=== PATIENT | female | born 1985 | race Caucasian/White ===

== ENCOUNTER 2023-09-16 12:54 | Inpatient (IN) ==
--- NOTE | 2023-09-16 13:16 | ED Triage Note ---
Date of Service September 16, 2023 Provider in Triage Author: Ej Thomas. History of Present Illness This patient was briefly evaluated while in triage. An abbreviated physical exam was performed. This patient is a 38-year-old Female who presents to the ED for evaluation of nausea vomiting diarrhea. nonbloody. intermittent cramping abd pain with ingestion. concerned she is dehydrated. No upper respiratory symptoms. Daughter also sick with similar symptoms. Patient has been sick for 1 week with the same symptoms. Physical Exam CONSTITUTIONAL: uncomfortable appearing, mildly ill, nontoxic SKIN: pink, warm, dry CARDIAC: tachycardic rate and regular rhythm RESPIRATORY: in no respiratory distress, lungs clear to auscultation ABDOMEN: soft, no focal tenderness Initial orders for labs and / or imaging were placed and patient was placed in the waiting area until a bed is available. Please see further documentation for the full ED course.
[2023-09-16] MEDS: ONDANSETRON INJ 2 MG/ML 2 ML VIAL IV STA (13:54)
[2023-09-16] MEDS: SODIUM CHLORIDE 0.9% 1,000 ML IV SCH (13:56)
[2023-09-16 13:57] LABS: Basophils # (auto) 0.02 K/uL (0.00-0.20); Basophils % (auto) 0.1 %; Eosinophils # (auto) 0.59 K/uL (0.00-0.50); Eosinophils % (auto) 4.1 %; Hematocrit (blood only) 42.9 % (37.0-47.0); Hemoglobin 16.1 g/dl (12.0-16.0); Immature Granulocytes # (auto) 0.07 K/uL (0.01-0.20); Immature Granulocytes % (auto) 0.5 %; Lymphocytes # (auto) 2.45 K/uL (1.20-3.40); Lymphocytes % (auto) 16.9 %; Mean Corpuscular Hemoglobin 30.8 pg (25.0-34.0); Mean Corpuscular Hgb Conc 37.5 g/dL (32.0-36.0); Mean Platelet Volume 11.2 fL (9.4-12.4); Monocytes # (auto) 0.88 K/uL (0.11-0.59); Monocytes % (auto) 6.1 %; Neutrophils # (auto) 10.48 K/uL (1.40-6.50); Neutrophils % (auto) 72.3 %; Platelet Count 395 K/uL (130-400); RDW Coefficient of Variation 13.1 % (11.5-14.5); RDW Standard Deviation 39.1 fL (36.4-46.3); Red Blood Count 5.23 M/uL (4.20-5.40); White Blood Count 14.49 K/ul (4.8-10.8)
--- NOTE | 2023-09-16 14:10 | Emergency Department Note ---
Impression & Plan Nausea, vomiting, and diarrhea, Hypokalemia due to excessive gastrointestinal loss of potassium ED Provider Note CHIEF COMPLAINT: Nausea, vomiting and diarrhea x 1 week HISTORY OF PRESENT ILLNESS: Patient is a 38-year-old female with past medical history significant for ADHD, anxiety and depression who presents to the emergency department for evaluation of nausea, vomiting and diarrhea. Symptoms started last Friday, 8 days ago.. She reports numerous episodes of both over the last week. She was feeling a little bit better on Friday, 2 days ago, had no vomiting and less diarrhea, but symptoms rebounded again yesterday. Last episode of vomiting was while she was in the waiting room, diarrhea was prior to leaving her home. She is tried Zofran and Imodium without relief. She has not documented a fever but had sweats and chills. She denies melena, hematemesis or hematochezia. Her school-aged daughter is sick with similar symptoms, and there have been multiple sick contacts at work. 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 No urinary symptoms. Last menstrual period was 3 weeks ago. She denies any foreign travel, unusual food or water concerns or recent antibiotic use. REVIEW OF SYSTEMS: Review of systems as per HPI. All other systems reviewed were negative. 10 systems reviewed. PMH: External medical records are reviewed and summarized as above/below. See Problem List. SOCIAL HISTORY: Patient lives at home with her family. Employed. PHYSICAL EXAM: Vital Signs: Reviewed Nurse's notes. Tachycardic in triage, mildly hypotensive in the exam room. CONSTITUTIONAL: Patient is an ill appearing but otherwise nontoxic 38-year-old female laying on the gurney in no acute distress. EYES: Pupils equal, round, reactive to light and accommodation. EOMs intact without nystagmus. Sclera are anicteric. ENT: Tympanic membranes intact, with normal landmarks. External canals are clear. Oral and nasopharynx are clear. Mucous membranes are moist, no lesions, tongue and gums appear normal. CARDIOVASCULAR: Regular rate and rhythm. Peripheral pulses easily palpable. RESPIRATORY: Breath sounds equal and clear to auscultation. ABDOMEN: Bowel sounds are present, hyperactive throughout. The abdomen is soft, mildly distended, tympanic to percussion throughout. Diffusely tender to percussion and palpation, without focal guarding or rebound. INTEGUMENTARY: No lesions or rash, normal skin turgor. LYMPH: No lymphadenopathy. EMERGENCY DEPARTMENT COURSE: The patient was seen and assessed as above. External medical records were reviewed. Patient was assessed by provider in triage and orders initiated including CBC with differential, CMP, serum hCG, lipase, magnesium, urinalysis and stool studies. She was observed on the quality assurance monitor final. She was given a total of 2 L of normal saline solution and Zofran 4 mg IV. Patient was reassessed. Laboratory studies were reviewed with her. The first liter of IV fluid was complete and second liter was hung. She was ordered 10 mEq of KCl repletion, this went up as well. She is still having diarrhea and was given 2 tablets of Lomotil orally. Discussed possible oral repletion of the potassium if vomiting is managed. Given persistent diarrhea, did recommend CT scan of the abdomen and pelvis with IV contrast. CT scan as noted below. Patient was reassessed and CT scan findings were discussed with her. Second liter of fluid is finishing. She reports feeling mildly improved with the oral Lomotil. Still hypotensive and mildly tachycardic, recommended additional liter of LR and additional 10 mEq of KCl IV. She was in agreement. At this point, goal is to discharge patient to home. Discussed medication regimen with her, including Phenergan, Lomotil and Bentyl. Would also like her to get a dose of oral potassium chloride powder in the ED prior to discharge, if she is tolerating p.o. This was ordered with PO fluid trial. At change of shift (1740), care was signed out to colleague, Nafisa Tariq PA-C, pending additional IVF, PO fluid trial and reassessment. Please refer to her dictation for completion of ED course and ultimate disposition. Case was reviewed with Dr. Burrell. Diagnostics, as interpreted by me: Laboratory studies: Moderate leukocytosis 14,500 with left shift. No anemia. No thrombocytopenia. Hypokalemia noted with a potassium of 2.8, no other significant electrolyte imbalance requiring correction noted. No MAURISIO. No worrisome transaminitis. Lipase is not indicative of acute pancreatitis. test negative. Stool PCR negative. Cardiac Monitoring: Cardiac monitoring: An order was placed for continuous cardiac monitoring. The monitor shows a NSR at a rate of 82 per my interpretation. Imaging studies: CT scan of the abdomen and pelvis with IV contrast notes fluid- filled nondilated large and small bowel as well as stomach, consistent with diarrheal illness/gastroenteritis. Mesenteric nodes also noted. No bowel wall thickening or obstruction. Differential diagnosis: infectious versus inflammatory colitis/enteritis, foodborne illness, electrolyte or metabolic abnormality, dehydration, bowel obstruction, diverticulitis, among others. Past Med/Surg History Medical History (Updated 09/16/23 @ 17:33 by Mouna Morrissey) Obesity ADHD Anxiety and depression Surgical History (Updated 09/16/23 @ 14:10 by Mouna Morrissey) H/O section History of appendectomy Social History Smoking Status: Never smoker Feels Safe at Home: Yes Allergies Allergies Allergy/AdvReac Type Severity Reaction Status Date / Time cefadroxil [From Duricef] Allergy Severe THROAT Verified 09/16/23 14:29 CLOSES cefaclor [From Ceclor] Allergy Intermediate ITCHY Verified 09/16/23 14:29 HIVES/RASH Cephalosporins Allergy Intermediate Hives, Verified 09/16/23 14:29 Rash-->as a child Penicillins Allergy Intermediate ITCHY Verified 09/16/23 14:29 HIVES/RASH A CHILD Home Meds Home Medications Medication Instructions Recorded Confirmed Control Pill 1 tab PO HS 09/16/23 09/16/23 bupropion HCl 150 mg 24 hr tablet, 150 mg PO QAM 09/16/23 09/16/23 extended release (Wellbutrin XL) dextroamphetamine-amphetamine ER 15 mg PO DAILY 09/16/23 09/16/23 15 mg 24hr capsule,extend release (Adderall XR) escitalopram oxalate 10 mg tablet 15 mg PO HS 09/16/23 09/16/23 (Lexapro) semaglutide 1 mg/dose (4 mg/3 mL) 10 mg subcut WK 09/16/23 09/16/23 subcutaneous pen injector (Ozempic) Previous Rx's Medication Instructions Recorded dicyclomine 20 mg tablet 20 mg PO QID PRN abdominal pain 09/16/23 #20 tabs diphenoxylate-atropine 2.5 2 tab PO QID PRN diarrhea #20 tabs 09/16/23 mg-0.025 mg tablet (Lomotil) promethazine 25 mg tablet 25 mg PO Q6H PRN nausea and 09/16/23 vomiting #20 tabs Results & Data (ED) Vital Signs Vital Signs - 24 hr 09/16/23 13:11 09/16/23 14:54 09/16/23 14:54 Temperature 36.9 C Temperature Source Temporal Artery Scan Pulse Rate 126 H Pulse Rate [Apical] 92 H Respiratory Rate 18 14 Respiratory Effort / Characteristics Non-Labored Spontaneous Respiratory Depth Normal Normal Blood Pressure 123/94 Blood Pressure [Left Arm] 98/77 L Blood Pressure Mean 103 Blood Pressure Mean [Left Arm] 84 Pulse Oximetry 99 98 98 Oxygen Delivery Method Room Air Room Air Room Air Sepsis Recent Fever Within 48 Hours No Sepsis New/Unexplained Change in Mental Status No Sepsis Action Taken by Nursing No Action Required 09/16/23 16:48 Temperature Temperature Source Pulse Rate Pulse Rate [Apical] 93 H Respiratory Rate 16 Respiratory Effort / Characteristics Respiratory Depth Normal Blood Pressure Blood Pressure [Left Arm] 104/71 Blood Pressure Mean Blood Pressure Mean [Left Arm] 82 Pulse Oximetry 98 Oxygen Delivery Method Room Air Sepsis Recent Fever Within 48 Hours Sepsis New/Unexplained Change in Mental Status Sepsis Action Taken by Prison Medications Current Medication List: was personally reviewed by me Laboratory Data Attestation: I reviewed the patient's lab results. 09/16/23 13:24 09/16/23 13:24 Lab Results 09/16/23 09/16/23 Range/Units 13:24 14:30 WBC 14.49 H (4.8-10.8) K/ul RBC 5.23 (4.20-5.40) M/uL Hgb 16.1 H (12.0-16.0) g/dl Hct 42.9 (37.0-47.0) % MCV 82.0 (80.0-100.0) fL MCH 30.8 (25.0-34.0) pg MCHC 37.5 H (32.0-36.0) g/dL RDW Std Deviation 39.1 (36.4-46.3) fL RDW Coeff of Mariely 13.1 (11.5-14.5) % Plt Count 395 (130-400) K/uL MPV 11.2 (9.4-12.4) fL Immature Gran % (Auto) 0.5 % Neut % (Auto) 72.3 % Lymph % (Auto) 16.9 % [place] % (Auto) 6.1 % Eos % (Auto) 4.1 % Baso % (Auto) 0.1 % Neut # (Auto) 10.48 H (1.40-6.50) K/uL Lymph # (Auto) 2.45 (1.20-3.40) K/uL [place] # (Auto) 0.88 H (0.11-0.59) K/uL Eos # (Auto) 0.59 H (0.00-0.50) K/uL Baso # (Auto) 0.02 (0.00-0.20) K/uL Immature Gran # (Auto) 0.07 (0.01-0.20) K/uL Sodium 140 (136-145) mmol/L Potassium 2.8 L (3.5-5.1) mmol/L Chloride 102 (98-107) mmol/L Carbon Dioxide 23 (21-32) mmol/L Anion Gap 15 H (3-11) BUN 11 (6-23) mg/dl Creatinine 1.00 (0.6-1.2) mg/dl Est Cr Clr Drug Dosing Not Reportable Est GFR ( Amer) 83.4 ml/min Est GFR (Non-Af Amer) 71.9 ml/min BUN/Creatinine Ratio 11.0 (10-20) Glucose 107 H (70-99(Fasting)) mg/dl Calcium 9.5 (8.6-10.3) mg/dl Magnesium 1.7 (1.7-2.4) mg/dl Total Bilirubin 0.4 (0.2-1.0) mg/dl AST 44 H (13-39) U/L ALT 24 (7-52) U/L Alkaline Phosphatase 95 (34-104) U/L Total Protein 8.1 (6.0-8.3) gm/dl Albumin 4.6 (3.4-5.0) gm/dl Globulin 3.5 (2.5-4.0) gm/dl Albumin/Globulin Ratio 1.3 (0.9-2) Lipase 29 (11-82) U/L HCG, Qual Negative (Negative) Stl C. cayetanensis PCR Not Detected (NotDetected) Stool Rotavirus A PCR Not Detected (NotDetected) Stl Adenov F 40/41 PCR Not Detected (NotDetected) Stool Astrovirus (PCR) Not Detected (NotDetected) Stool Campylobacter PCR Not Detected (NotDetected) Stool Cryptosporidium PCR Not Detected (NotDetected) Stl E.coli Shiga Tox PCR Not Detected (NotDetected) Stl Enterotoxigenic E PCR Not Detected (NotDetected) Stool EPEC (PCR) Not Detected (NotDetected) Stool EAEC (PCR) Not Detected (NotDetected) Stl E. histolytica PCR Not Detected (NotDetected) Stool Giardia Lamblia PCR Not Detected (NotDetected) Stool Salmonella PCR Not Detected (NotDetected) Stool Sapovirus (PCR) Not Detected (NotDetected) Stl P. shigelloides PCR Not Detected (NotDetected) Stl Shigella/EIEC PCR Not Detected (NotDetected) St Y.enterocolitica PCR Not Detected (NotDetected) Stool Vibrio (PCR) Not Detected (NotDetected) Stl Vibrio cholerae PCR Not Detected (NotDetected) Stl Norovirus GI/GII PCR Not Detected (NotDetected) Administered Medications Discontinued Medications Diphenoxylate HCl/Atropine (Diphenoxylate/Atropine 2.5/0.025mg Tab) 2 tab PO NOW ONE Stop: 09/16/23 15:40 Last Admin: 09/16/23 15:48 Dose: 2 tab Documented By: SIERRA Sodium Chloride (Nss) 1,000 mls @ 999 mls/hr IV .Q1H1M PEBBLES Stop: 09/16/23 15:15 Last Infusion: 09/16/23 16:50 Dose: Infused Documented By: Admin: 09/16/23 15:41 Dose: 999 mls/hr Documented By: Infusion: 09/16/23 15:41 Dose: Infused Documented By: Admin: 09/16/23 13:56 Dose: 999 mls/hr Documented By: SIERRA Potassium Chloride (K Jim / Wtr) 10 meq in 100 mls @ 100 mls/hr IV ONE ONE Stop: 09/16/23 16:15 Last Infusion: 09/16/23 16:50 Dose: Infused Documented By: Admin: 09/16/23 15:42 Dose: 100 mls/hr Documented By: SIERRA Ioversol (Optiray 320 100ml) 90 ml IV ONCE ONE Stop: 09/16/23 16:40 Last Admin: 09/16/23 16:40 Dose: 90 ml Documented By: SB Ondansetron HCl (Ondansetron Inj 2 Mg/Ml 2 Ml Vial) 4 mg IV NOW STA Stop: 09/16/23 13:16 Last Admin: 09/16/23 13:54 Dose: 4 mg Documented By: SIERRA Imaging Data Attestation: I personally reviewed and interpreted this imaging study as follows: Radiologist's Impression: Abdomen/Pelvis CT 09/16/23 16:[address] WITH IV CONTRAST CT DOSE: 1026.5 mGy.cm HISTORY: DIARRHEA, VOMITING X 1 WEEK TECHNIQUE: Multiaxial CT images of the abdomen and pelvis were performed following the use of intravenous contrast. A dose lowering technique was utilized adhering to the principles of ALARA. COMPARISON STUDY: None. FINDINGS: The lung bases are clear. No pneumoperitoneum. No pneumatosis. No acute fractures. Fluid-filled nondistended stomach. The liver, gallbladder, pancreas, spleen, adrenal glands, and kidneys are unremarkable. No hydronephrosis. No retroperitoneal lymphadenopathy. Normal caliber abdominal aorta. The main portal vein is patent. Multiple prominent mesenteric lymph nodes measuring up to 7 mm in short axis diameter. No pelvic lymphadenopathy or pelvic free fluid. The bladder is underdistended but appears unremarkable. The uterus and ovaries are within normal limits. No bowel wall thickening or obstruction. Prior appendectomy. Fluid-filled nondilated loops of large and small bowel. IMPRESSION: 1. No bowel wall thickening or obstruction. 2. Prior appendectomy. 3. Fluid-filled nondilated loops of large and small bowel as well as a fluid- filled stomach. Findings suggest a diarrheal illness/gastroenteritis. 4. Multiple prominent mesenteric lymph nodes. These are nonspecific but could be reactive to the suspected gastroenteritis. A mild mesenteric adenitis is also considered in the differential diagnosis. ACT 112: Negative or not required by law. Electronically signed by: Jerad Shipman M.D. 09/16/2023 5:03 PM Discharge Plan Visit Data Chief Complaint: Dehydration Stated Complaint: DIARRHEA, DEHYDRATED ED Provider: Camilo Burrell ED Midlevel Provider: Nafisa Tariq Discharge Problem: Nausea, vomiting, and diarrhea, Hypokalemia due to excessive gastrointestinal loss of potassium Patient Disposition: Still a Patient Discharge Instructions Griselda/Other Patient Handouts: ED Potassium-Rich Foods Activity Restrictions/Additional Instructions: DO NOT drive, drink alcohol, operate machinery, or perform dangerous activities today. You were given medications in the ER that can affect your ability to safely function or operate a vehicle. Phenergan(promethazine) tablets 25mg: Take one every six hours as needed for nausea. Avoid alcohol, operating machinery or dangerous equipment, working on ladders or roofs, DRIVING, or situations where being under the influence may be dangerous. Zofran(odansetron) tablets 4mg: Take one and allow it to dissolve in your mouth every four to six hours as needed for nausea or vomiting. Bentyl (dicyclomine) 20mg : Take 1 tablet up to 4 times daily as needed for abdominal pain and cramping. This medication may cause sedation and should avoid alcohol, operating machinery or dangerous equipment, working on ladders or roofs, DRIVING, or situations where being under the influence may be dangerous. Lomotil 2.5mg : Take 2 tablets every 6 hours as needed for diarrhea, can decrease to 1 tablet every 6 hours as symptoms improve. This medication may cause sedation and should avoid alcohol, operating machinery or dangerous equipment, working on ladders or roofs, DRIVING, or situations where being under the influence may be dangerous. Acetaminophen(Tylenol) may be used for fever or pain. Use 1000mg every six hours as needed. Avoid using more than 4000mg in a 24 hour period. Rest and drink plenty of fluids as tolerated. Slow sips of water or sports drinks are recommended instead of large amounts all at once. Continue current medications. Once your stomach is settled start with a clear liquid diet (jello, soup broth, etc.) and then advance as tolerated. You should avoid full, heavy meals for about 24 hrs from the time your symptoms resolved. Try to incorporate potassium-rich foods in your diet once you are feeling better. Can consider having potassium level rechecked in a few days to ensure levels have returned to normal. NO DAIRY PRODUCTS-this can cause rebound diarrhea. Hold any dairy until you have been fever free x 48 hours. Return to the ER for persistent vomiting, fevers, abdominal pain, chest pains, difficulty breathing, black or bloody stools, worsening of your condition, or as needed. Follow up with your primary physician in 2-3 days for a recheck of your current condition. Forms Stand Alone Forms: My [facility] Prescriptions Prescriptions: New dicyclomine 20 mg tablet 20 mg PO QID PRN (Reason: abdominal pain) Qty: 20 0RF promethazine 25 mg tablet 25 mg PO Q6H PRN (Reason: nausea and vomiting) Qty: 20 0RF diphenoxylate-atropine [Lomotil] 2.5-0.025 mg tablet 2 tab PO QID PRN (Reason: diarrhea) Qty: 20 0RF Rx Instructions: INITIAL THERAPY No Action dextroamphetamine-amphetamine [Adderall XR] 15 mg Capsule,Extended Release 24hr 15 mg PO DAILY escitalopram oxalate [Lexapro] 10 mg Tablet 15 mg PO HS bupropion HCl [Wellbutrin XL] 150 mg Tablet Extended Release 24 Hr 150 mg PO QAM Ozempic 1 mg/dose (4 mg/3 mL) Pen Injector 10 mg SUBCUT WK Rx Instructions: SUNDAYS Control Pill 1 tab PO HS Referrals Referrals: PCP,NO [Primary Care Provider] -
[2023-09-16 14:12] LABS: Pregnancy Test, Serum Negative (Negative)
[2023-09-16 14:17] LABS: Alanine Aminotransferase 24 U/L (7-52); Albumin Globulin Ratio 1.3 (0.9-2); Albumin Level 4.6 gm/dl (3.4-5.0); Alkaline Phosphatase 95 U/L (34-104); Anion Gap 15 (3-11); Aspartate Aminotransferase 44 U/L (13-39); Bilirubin,Total 0.4 mg/dl (0.2-1.0); Blood Urea Nitrogen 11 mg/dl (6-23); Calcium 9.5 mg/dl (8.6-10.3); Carbon Dioxide 23 mmol/L (21-32); Chloride 102 mmol/L (98-107); Est GFR (African American) 83.4 ml/min; Est GFR (Non-African American) 71.9 ml/min; Globulin 3.5 gm/dl (2.5-4.0); Glucose 107 mg/dl (70-99(Fasting)); Lipase 29 U/L (11-82); Magnesium 1.7 mg/dl (1.7-2.4); Potassium 2.8 mmol/L (3.5-5.1); Sodium 140 mmol/L (136-145); Total Protein 8.1 gm/dl (6.0-8.3)
[2023-09-16] MEDS: POTASSIUM CHLORIDE / WTR 10 MEQ/100 ML PLCT IV ONE ×2 (15:42→17:49)
[2023-09-16] MEDS: DIPHENOXYLATE/ATROPINE 2.5/0.025MG TAB PO ONE (15:48)
[2023-09-16 16:16] LABS: Adenovirus F 40/41 PCR Not Detected (NotDetected); Astrovirus PCR Not Detected (NotDetected); Campylobacter PCR Not Detected (NotDetected); Cryptosporidium PCR Not Detected (NotDetected); Cyclospora cayetanensis PCR Not Detected (NotDetected); Entamoeba histolytica PCR Not Detected (NotDetected); Enteroaggregative E.coli(EAEC) Not Detected (NotDetected); Enteropathogenic E.coli (EPEC) Not Detected (NotDetected); Enterotoxigenic E.coli (ETEC) Not Detected (NotDetected); Giardia lamblia PCR Not Detected (NotDetected); Norovirus GI/GII PCR Not Detected (NotDetected); Plesiomonas shigelloides PCR Not Detected (NotDetected); Rotavirus A PCR Not Detected (NotDetected); Salmonella PCR Not Detected (NotDetected); Sapovirus PCR Not Detected (NotDetected); Shiga-like Toxin E.coli (STEC) Not Detected (NotDetected); Shigella/Enteroinvasive E.coli Not Detected (NotDetected); Vibrio cholerae PCR Not Detected (NotDetected); Vibrio species PCR Not Detected (NotDetected); Yersinia enterocolitica PCR Not Detected (NotDetected)
[2023-09-16] MEDS: OPTIRAY 320 100ml IV ONE (16:40)
--- NOTE | 2023-09-16 17:05 | CT Scan Report ---
ABDOMEN AND PELVIS CT WITH IV CONTRAST CT DOSE: 1026.5 mGy.cm HISTORY: DIARRHEA, VOMITING X 1 WEEK TECHNIQUE: Multiaxial CT images of the abdomen and pelvis were performed following the use of intrave nous contrast. A dose lowering technique was utilized adhering to the principles of ALARA. COMPARISON STUDY: None. FINDINGS: The lung bases are clear. No pneumoperitoneum. No pneumatosis. No acute fractures. Fluid-fi lled nondistended stomach. The liver, gallbladder, pancreas, spleen, adrenal glands, and kidneys are unremarkable. No hydronephrosis. No retroperitoneal lymphadenopathy. Normal caliber abdominal aorta. The main portal vein is patent. Multiple prominent mesenteric lymph nodes measuring up to 7 mm in arnie rt axis diameter. No pelvic lymphadenopathy or pelvic free fluid. The bladder is underdistended but a ppears unremarkable. The uterus and ovaries are within normal limits. No bowel wall thickening or obs truction. Prior appendectomy. Fluid-filled nondilated loops of large and small bowel. IMPRESSION: 1. No bowel wall thickening or obstruction. 2. Prior appendectomy. 3. Fluid-filled nondilated loops of large and small bowel as well as a fluid-filled stomach. Findings suggest a diarrheal illness/gastroenteritis. 4. Multiple prominent mesenteric lymph nodes. These are nonspecific but could be reactive to the susp ected gastroenteritis. A mild mesenteric adenitis is also considered in the differential diagnosis. ACT 112: Negative or not required by law. Electronically signed by: Jerad Shipman M.D. 09/16/2023 5:03 PM
--- NOTE | 2023-09-16 17:41 | Emergency Department Note ---
ED Visit Note This patient was signed out to me by Alize Morrissey PA-C at change of shift. Please refer to her dictation for full details. In short, the patient presented to the emergency department for evaluation of nausea, vomiting, diarrhea, and abdominal pain that started 8 days ago. The patient's stool bio fire was negative. CT scan of the abdomen and pelvis with IV contrast showed fluid- filled nondilated large and small bowel as well as stomach consistent with diarrheal illness/gastroenteritis as well as possible mesenteric adenitis. The patient's white blood cell count was elevated at 14.5. Potassium was low at 2.8 with a normal magnesium. Remainder the laboratory studies without significant abnormalities. The patient was given a total of 2 L of normal saline solution, Zofran 4 mg IV, Lomotil 2 tablets orally, and one K rider. At the time of signout, a second K rider as well as 1 L of LR was being administered. The patient was to have a p.o. trial following this to see if she could be discharged home or whether she would require admission. Before I was able to reevaluate the patient, nursing staff notified me that after half of the second K rider had been given, the patient developed pain in the right arm as well as a tightness in her R>L legs that she felt was secondary to the potassium. The K rider was stopped, but the LR was continued. The arm pain resolved after the K rider was stopped. The pain in the legs improved, but did not fully resolve initially after stopping the K rider. I reexamined the patient at this time and she had no tenderness to palpation of the right arm or the bilateral lower legs. Normal sensation of the bilateral upper extremities and lower extremities. She denies any chest pain or shortness of breath. She had the continued abdominal pain, but no change in her abdominal pain from previous. She was still feeling queasy as well and was having trouble with a p.o. trial. EKG was obtained and interpreted by myself and showed normal sinus rhythm at 77 bpm with prolonged QT, but no acute ST or T wave changes. Due to the patient's continued symptoms, it was felt the patient would benefit from admission for further management of her symptoms. I spoke with the on-call hospitalist who agreed to admit the patient for further evaluation and treatment. Please refer to their dictation for further details. The patient's care was transferred in stable condition. DIAGNOSIS: Nausea, vomiting, and diarrhea that appear secondary to gastroenteritis Hypokalemia .
[2023-09-16] MEDS: POTASSIUM CHLORIDE PWD 20 MEQ PACK PO STA ×2 (17:48→21:54)
[2023-09-16] MEDS: LACTATED RINGER'S 1,000 ML IV ONE ×2 (17:49→22:15)
[2023-09-16 20:00] LABS: Appearance Urine Clear (Clear); Bacteria Urine Automated Negative (Negative); Bilirubin Urine Negative (Negative); Blood Urine Negative (Negative); Cast Urine Automated 0 /lpf (0-5); Color Urine Yellow; Glucose Urine UA Negative (Negative); Ketones Urine 4+ (Negative); Leukocyte Esterase Urine Negative (Negative); Nitrite Urine Negative (Negative); Protein Urine Trace (Negative); RBC Urine Automated 0-4 /hpf (0-4); Specific Gravity Urine > 1.045 (1.000-1.030); Urobilinogen Urine Negative (Negative); pH Urine 5.5 (4.5-7.5)
--- NOTE | 2023-09-16 21:43 | History & Physical Report ---
Date of Service September 16, 2023 Assessment & Plan (1) Hypokalemia due to excessive gastrointestinal loss of potassium: Plan: Secondary to likely viral diarrheal illness bronchial asthma, stable GIL on CPAP ADD, anxiety/mood disorder, stable on regimen OBS Medical telemetry given hypokalemia replace potassium, will use oral agents for now given patient's uncomfortable reaction to parenteral replacement Supportive management for viral diarrheal illness DVT prophylaxis. Lovenox subcu Full code Text document was generated using [employer] voice recognition software. It may contain grammatical or spelling errors. Kindly contact undersigned for clarification of any documentation item in question. History of Present Illness Chief Complaint: Abdominal pain Primary Care Provider: Dr. Ferrera of [place], [place] Patient partner requesting for patient to be set up with local PCP from [facility] on discharge. History obtained from patient, family, and records. Medical history significant for bronchial asthma, GIL on CPAP, ADD, anxiety/mood disorder Patient relocated to town 6 months ago to live with partner. 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 1 week history of achy abdominal pain associated with nausea, vomiting, watery diarrhea symptoms. Sick contacts at home and at work. No recent antibiotic Rx intake or out-of-town travel. Some chills. No chest pain, no SOB, no headache symptoms. Transient uncomfortable arm and leg tingling after IV potassium administered at the ER. Patient currently comfortable. Medical History as above Surgical History : section, dental surgery, appendectomy Family History : Stroke Personal/Social history : non-smoker, occasional EtOH intake, schoolteacher Allergies Allergy/AdvReac Type Severity Reaction Status Date / Time cefadroxil [From Duricef] Allergy Severe THROAT Verified 09/16/23 14:29 CLOSES cefaclor [From Ceclor] Allergy Intermediate ITCHY Verified 09/16/23 14:29 HIVES/RASH Cephalosporins Allergy Intermediate Hives, Verified 09/16/23 14:29 Rash-->as a child Penicillins Allergy Intermediate ITCHY Verified 09/16/23 14:29 HIVES/RASH A CHILD Home Medications Medication Instructions Recorded Confirmed Type Control Pill 1 tab PO HS 09/16/23 09/16/23 History bupropion HCl 150 mg 24 hr tablet, 150 mg PO QAM 09/16/23 09/16/23 History extended release (Wellbutrin XL) dextroamphetamine-amphetamine ER 15 mg PO DAILY 09/16/23 09/16/23 History 15 mg 24hr capsule,extend release (Adderall XR) dicyclomine 20 mg tablet 20 mg PO QID PRN abdominal pain 09/16/23 Rx #20 tabs diphenoxylate-atropine 2.5 2 tab PO QID PRN diarrhea #20 tabs 09/16/23 Rx mg-0.025 mg tablet (Lomotil) escitalopram oxalate 10 mg tablet 15 mg PO HS 09/16/23 09/16/23 History (Lexapro) promethazine 25 mg tablet 25 mg PO Q6H PRN nausea and 09/16/23 Rx vomiting #20 tabs semaglutide 1 mg/dose (4 mg/3 mL) 10 mg subcut WK 09/16/23 09/16/23 History subcutaneous pen injector (Ozempic) Past Med/Surg History Medical History (Updated 09/16/23 @ 17:33 by Mouna Morrissey) Obesity ADHD Anxiety and depression Surgical History (Updated 09/16/23 @ 14:10 by Mouna Morrissey) H/O section History of appendectomy Social History Smoking Status: Never smoker Hx Alcohol Use: Yes Alcohol type: beer, wine and hard liquor Hx Substance Use: No Preferred Language: Maltese Communication Ability: Effective Watch Engine Operator Required: No Beliefs That Will Affect Care: None Current Living Situation: Spouse Other Information That Helps Us Care for You: No Feels Safe at Home: Yes Safety Concerns: Feels Safe At This Time Assistive Devices: Glasses Review of Systems Review of Systems: As per HPI, all other systems reviewed and negative Physical Exam Physical Exam: GENERAL: Comfortable, pleasant, obese, no respiratory distress SKIN: Normal color, warm HEENT: [place] palpebral conjunctivae, no ptosis, dry buccal mucosa NECK : Supple, short neck, no tenderness CHEST : CTA, no tenderness HEART : RRR, no obvious murmurs ABDOMEN: Some distention, central abdominal tenderness EXTREMITIES : Minimal LE swelling, no LE tenderness, no other conspicuous deformities noted NEUROLOGIC : Coherent, no facial asymmetry, no other gross focality Results & Data Results & Data Vital Signs (Past 12 Hours) Vital Signs Temp Pulse Pulse Resp BP BP Pulse Ox 09/16/23 16:48 93 H 16 104/71 98 09/16/23 14:54 98 09/16/23 14:54 92 H 14 98/77 L 98 09/16/23 13:11 36.9 C 126 H 18 123/94 99 O2 Del Method 09/16/23 16:48 Room Air 09/16/23 14:54 Room Air 09/16/23 14:54 Room Air 09/16/23 13:11 Room Air Laboratory Results Laboratory Results WBC 14.49 K/ul (4.8-10.8) H 09/16/23 13:24 RBC 5.23 M/uL (4.20-5.40) 09/16/23 13:24 Hgb 16.1 g/dl (12.0-16.0) H 09/16/23 13:24 Hct 42.9 % (37.0-47.0) 09/16/23 13:24 MCV 82.0 fL (80.0-100.0) 09/16/23 13:24 MCH 30.8 pg (25.0-34.0) 09/16/23 13:24 MCHC 37.5 g/dL (32.0-36.0) H 09/16/23 13:24 RDW Std Deviation 39.1 fL (36.4-46.3) 09/16/23 13:24 RDW Coeff of Mariely 13.1 % (11.5-14.5) 09/16/23 13:24 Plt Count 395 K/uL (130-400) 09/16/23 13:24 MPV 11.2 fL (9.4-12.4) 09/16/23 13:24 Immature Gran % (Auto) 0.5 % 09/16/23 13:24 Neut % (Auto) 72.3 % 09/16/23 13:24 Lymph % (Auto) 16.9 % 09/16/23 13:24 [place] % (Auto) 6.1 % 09/16/23 13:24 Eos % (Auto) 4.1 % 09/16/23 13:24 Baso % (Auto) 0.1 % 09/16/23 13:24 Neut # (Auto) 10.48 K/uL (1.40-6.50) H 09/16/23 13:24 Lymph # (Auto) 2.45 K/uL (1.20-3.40) 09/16/23 13:24 [place] # (Auto) 0.88 K/uL (0.11-0.59) H 09/16/23 13:24 Eos # (Auto) 0.59 K/uL (0.00-0.50) H 09/16/23 13:24 Baso # (Auto) 0.02 K/uL (0.00-0.20) 09/16/23 13:24 Immature Gran # (Auto) 0.07 K/uL (0.01-0.20) 09/16/23 13:24 Sodium 140 mmol/L (136-145) 09/16/23 13:24 Potassium 2.8 mmol/L (3.5-5.1) L 09/16/23 13:24 Chloride 102 mmol/L (98-107) 09/16/23 13:24 Carbon Dioxide 23 mmol/L (21-32) 09/16/23 13:24 Anion Gap 15 (3-11) H 09/16/23 13:24 BUN 11 mg/dl (6-23) 09/16/23 13:24 Creatinine 1.00 mg/dl (0.6-1.2) 09/16/23 13:24 Est Cr Clr Drug Dosing Not Reportable 09/16/23 13:24 Est GFR ( Amer) 83.4 ml/min 09/16/23 13:24 Est GFR (Non-Af Amer) 71.9 ml/min 09/16/23 13:24 BUN/Creatinine Ratio 11.0 (10-20) 09/16/23 13:24 Glucose 107 mg/dl (70-99(Fasting)) H 09/16/23 13:24 Calcium 9.5 mg/dl (8.6-10.3) 09/16/23 13:24 Magnesium 1.7 mg/dl (1.7-2.4) 09/16/23 13:24 Total Bilirubin 0.4 mg/dl (0.2-1.0) 09/16/23 13:24 AST 44 U/L (13-39) H 09/16/23 13:24 ALT 24 U/L (7-52) 09/16/23 13:24 Alkaline Phosphatase 95 U/L (34-104) 09/16/23 13:24 Total Protein 8.1 gm/dl (6.0-8.3) 09/16/23 13:24 Albumin 4.6 gm/dl (3.4-5.0) 09/16/23 13:24 Globulin 3.5 gm/dl (2.5-4.0) 09/16/23 13:24 Albumin/Globulin Ratio 1.3 (0.9-2) 09/16/23 13:24 Lipase 29 U/L (11-82) 09/16/23 13:24 Procalcitonin < 0.02 ng/ml (0-0.5) 09/16/23 13:24 HCG, Qual Negative (Negative) 09/16/23 13:24 Urine Color Yellow 09/16/23 19:39 Urine Appearance Clear (Clear) 09/16/23 19:39 Urine pH 5.5 (4.5-7.5) 09/16/23 19:39 Ur Specific [place] > 1.045 (1.000-1.030) H 09/16/23 19:39 Urine Protein Trace (Negative) H 09/16/23 19:39 Urine Glucose (UA) Negative (Negative) 09/16/23 19:39 Urine Ketones 4+ (Negative) H 09/16/23 19:39 Urine Blood Negative (Negative) 09/16/23 19:39 Urine Nitrite Negative (Negative) 09/16/23 19:39 Urine Bilirubin Negative (Negative) 09/16/23 19:39 Urine Urobilinogen Negative (Negative) 09/16/23 19:39 Ur Leukocyte Esterase Negative (Negative) 09/16/23 19:39 Urine WBC (Auto) 1-5 /hpf (0-5) 09/16/23 19:39 Urine RBC (Auto) 0-4 /hpf (0-4) 09/16/23 19:39 U Hyaline Cast (Auto) 0 /lpf (0-5) 09/16/23 19:39 U Epithel Cells (Auto) 10-20 /lpf (0-5) H 09/16/23 19:39 Urine Bacteria (Auto) Negative (Negative) 09/16/23 19:39 Stl C. cayetanensis PCR Not Detected (NotDetected) 09/16/23 14:30 Stool Rotavirus A PCR Not Detected (NotDetected) 09/16/23 14:30 Stl Adenov F 40/41 PCR Not Detected (NotDetected) 09/16/23 14:30 Stool Astrovirus (PCR) Not Detected (NotDetected) 09/16/23 14:30 Stool Campylobacter PCR Not Detected (NotDetected) 09/16/23 14:30 Stool Cryptosporidium PCR Not Detected (NotDetected) 09/16/23 14:30 Stl E.coli Shiga Tox PCR Not Detected (NotDetected) 09/16/23 14:30 Stl Enterotoxigenic E PCR Not Detected (NotDetected) 09/16/23 14:30 Stool EPEC (PCR) Not Detected (NotDetected) 09/16/23 14:30 Stool EAEC (PCR) Not Detected (NotDetected) 09/16/23 14:30 Stl E. histolytica PCR Not Detected (NotDetected) 09/16/23 14:30 Stool Giardia Lamblia PCR Not Detected (NotDetected) 09/16/23 14:30 Stool Salmonella PCR Not Detected (NotDetected) 09/16/23 14:30 Stool Sapovirus (PCR) Not Detected (NotDetected) 09/16/23 14:30 Stl P. shigelloides PCR Not Detected (NotDetected) 09/16/23 14:30 Stl Shigella/EIEC PCR Not Detected (NotDetected) 09/16/23 14:30 St Y.enterocolitica PCR Not Detected (NotDetected) 09/16/23 14:30 Stool Vibrio (PCR) Not Detected (NotDetected) 09/16/23 14:30 Stl Vibrio cholerae PCR Not Detected (NotDetected) 09/16/23 14:30 Stl Norovirus GI/GII PCR Not Detected (NotDetected) 09/16/23 14:30 Impressions Abdomen/Pelvis CT 09/16/23 16:[address] WITH IV CONTRAST CT DOSE: 1026.5 mGy.cm HISTORY: DIARRHEA, VOMITING X 1 WEEK TECHNIQUE: Multiaxial CT images of the abdomen and pelvis were performed following the use of intravenous contrast. A dose lowering technique was utilized adhering to the principles of ALARA. COMPARISON STUDY: None. FINDINGS: The lung bases are clear. No pneumoperitoneum. No pneumatosis. No acute fractures. Fluid-filled nondistended stomach. The liver, gallbladder, pancreas, spleen, adrenal glands, and kidneys are unremarkable. No hydronephrosis. No retroperitoneal lymphadenopathy. Normal caliber abdominal aorta. The main portal vein is patent. Multiple prominent mesenteric lymph nodes measuring up to 7 mm in short axis diameter. No pelvic lymphadenopathy or pelvic free fluid. The bladder is underdistended but appears unremarkable. The uterus and ovaries are within normal limits. No bowel wall thickening or obstruction. Prior appendectomy. Fluid-filled nondilated loops of large and small bowel. IMPRESSION: 1. No bowel wall thickening or obstruction. 2. Prior appendectomy. 3. Fluid-filled nondilated loops of large and small bowel as well as a fluid- filled stomach. Findings suggest a diarrheal illness/gastroenteritis. 4. Multiple prominent mesenteric lymph nodes. These are nonspecific but could be reactive to the suspected gastroenteritis. A mild mesenteric adenitis is also considered in the differential diagnosis. ACT 112: Negative or not required by law. Electronically signed by: Jerad Shipman M.D. 09/16/2023 5:03 PM Diagnostic Findings EKG as per my interpretation : Rate 75, NSR, normal axis, T wave inversion anterior leads Code Status & VTE Plan VTE Prophylaxis Plan VTE Prophylaxis will be ordered: Yes
[2023-09-16] MEDS: MAGNESIUM SULFATE / D5W 1 GM/100 ML BAG IV ONE (21:55)
[2023-09-16] MEDS: PROMETHAZINE 12.5 MG/50.5 ML BAG IV STA (23:20)
[2023-09-17] MEDS: ESCITALOPRAM OXALATE 10 MG TAB PO SCH (01:33)
[2023-09-17 07:07] LABS: Basophils # (auto) 0.03 K/uL (0.00-0.20); Basophils % (auto) 0.2 %; Eosinophils # (auto) 1.47 K/uL (0.00-0.50); Eosinophils % (auto) 10.3 %; Hematocrit (blood only) 34.9 % (37.0-47.0); Hemoglobin 12.4 g/dl (12.0-16.0); Immature Granulocytes # (auto) 0.12 K/uL (0.01-0.20); Immature Granulocytes % (auto) 0.8 %; Lymphocytes # (auto) 2.75 K/uL (1.20-3.40); Lymphocytes % (auto) 19.3 %; Mean Corpuscular Hemoglobin 30.1 pg (25.0-34.0); Mean Corpuscular Hgb Conc 35.5 g/dL (32.0-36.0); Mean Corpuscular Volume 84.7 fL (80.0-100.0); Mean Platelet Volume 10.9 fL (9.4-12.4); Monocytes # (auto) 0.97 K/uL (0.11-0.59); Monocytes % (auto) 6.8 %; Neutrophils # (auto) 8.89 K/uL (1.40-6.50); Neutrophils % (auto) 62.6 %; Platelet Count 289 K/uL (130-400); RDW Coefficient of Variation 13.6 % (11.5-14.5); RDW Standard Deviation 41.9 fL (36.4-46.3); Red Blood Count 4.12 M/uL (4.20-5.40); White Blood Count 14.23 K/ul (4.8-10.8)
[2023-09-17 07:14] LABS: BUN Creatinine Ratio 7.4 (10-20); Calcium 7.9 mg/dl (8.6-10.3); Creatinine Clr Calc Pharmacy 89.8 ml/min; Est GFR (African American) 107.5 ml/min; Est GFR (Non-African American) 92.8 ml/min; Potassium 2.7 mmol/L (3.5-5.1)
[2023-09-17] MEDS: buPROPion XL 150 MG TABCR PO SCH (08:43)
[2023-09-17] MEDS: ENOXAPARIN INJ 40 MG/0.4 ML SYR SQ SCH (08:43)
[2023-09-17] MEDS: POTASSIUM CHLORIDE CRTAB 20 MEQ TABCR PO SCH (08:43)
[2023-09-17] MEDS: DEXTROAMPHETAMINE/AMPHETAMINE ER 5 MG CAP PO SCH (08:44)
[2023-09-17] MEDS: POTASSIUM CHLORIDE / WTR 10 MEQ/100 ML PLCT IV SCH (08:47)
[2023-09-17] MEDS ORDERED: POTASSIUM CHLORIDE CRTAB 20 MEQ TABCR PO SCH (09:00)
[2023-09-17] MEDS: LOPERAMIDE HCL 2 MG CAP PO PRN (10:38)
[2023-09-17] MEDS: D5W AND 1/2NSS + 20MEQ KCL 20 MEQ/1,000 ML BAG IV SCH (13:21)
--- NOTE | 2023-09-17 13:38 | Hospitalist Progress Note ---
Date of Service September 17, 2023 Assessment & Plan (1) Hypokalemia due to excessive gastrointestinal loss of potassium: (2) Nausea, vomiting, and diarrhea: Plan: Patient presented for evaluation of nausea, vomiting and diarrhea. Reports symptoms for more than a week History of similar symptoms with her school-aged daughter; her symptoms have improved Serum potassium of 2.7 CT abdomen/pelvis on admissionno bowel obstruction, fluid-filled nondilated loops of large and small bowel; findings suggestive of diarrheal illness/gastroenteritis. Multiple prominent mesenteric lymph node. Nonspecific; could be reactive to suspected gastroenteritis GI PCR panel and C. difficile negative Continue IV fluids Replete potassium Recommended diary to note number of bowel movements May need GI evaluation if diarrhea is persistent. Antidiarrheal as necessary Full code Lovenox Please note the above document was generated using voice recognition software. It may contain grammatical, syntax or spelling errors. Any formal questions or concerns about the content, text or information contained within the body of this dictation should be directly addressed to the provider for clarification Admission and Anticipated Discharge Date Admission Date: September 16, 2023 Subjective Patient seen and examined at bedside. She reports multiple episode of diarrhea overnight Reports mild abdominal cramp Vital stable. No significant overnight events Review of Systems Review of Systems: All systems reviewed & are unremarkable except as noted in Subjective Physical Exam Physical Exam: Constitutional: WD/WN, vitals as above, NAD, sitting up in bed, pleasant, conversing easily Respiratory: normal respiratory effort, lungs clear to auscultation, no wheeze, rales, rhonchi. Normal insp/exp effort, no accessory muscle use Cardiovascular: RRR, no murmur, no edema Vessels: no JVD or carotid bruit Chest: normal inspection of chest Abdomen: Soft, nontender Musculoskeletal: no cyanosis or clubbing, extremities motor strength 5/5 Skin: no rashes, warm and dry normal turgor Neurologic: PERRL, EOMI, accommodation nl, no face palsy, no dysarthria CN's II- XI intact bilaterally and moves all extremities Psychiatric: A+Ox3, euthymic affect Results & Data Results & Data Vital Signs (Past 12 Hours) Vital Signs Temp Pulse Pulse Resp BP Pulse Ox O2 Del Method 09/17/23 11:14 36.8 C 85 16 117/75 98 Room Air 09/17/23 09:00 Room Air 09/17/23 07:42 36.9 C 88 16 90/53 L 97 Room Air 09/17/23 07:00 86 09/17/23 04:24 36.8 C 87 18 99/66 L 97 Room Air
[2023-09-17] MEDS: PROMETHAZINE HCL 12.5 MG in SODIUM CHLORIDE 0.9% 50 ML IV PRN (20:54)
[2023-09-17] MEDS: DIPHENOXYLATE/ATROPINE 2.5/0.025MG TAB PO ONE (20:55)
--- NOTE | 2023-09-18 05:59 | Electrocardiogram Report ---
Test Reason : Blood Pressure : / mmHG Vent. Rate : 077 BPM Atrial Rate : 077 BPM P-R Int : 152 ms QRS Dur : 070 ms QT Int : 414 ms P-R-T Axes : 028 048 043 degrees QTc Int : 468 ms Normal sinus rhythm T wave abnormality, consider anterior ischemia Abnormal ECG No previous ECGs available Confirmed by Phong Geogres ([id number]) on 09/18/2023 5:59:34 AM Referred By: REFERRED SELF Confirmed By:Phong Georges
[2023-09-18 08:41] LABS: Basophils # (auto) 0.03 K/uL (0.00-0.20); Basophils % (auto) 0.2 %; Eosinophils # (auto) 2.69 K/uL (0.00-0.50); Hematocrit (blood only) 35.6 % (37.0-47.0); Hemoglobin 12.5 g/dl (12.0-16.0); Immature Granulocytes # (auto) 0.24 K/uL (0.01-0.20); Lymphocytes # (auto) 3.01 K/uL (1.20-3.40); Lymphocytes % (auto) 24.6 %; Mean Corpuscular Hemoglobin 30.3 pg (25.0-34.0); Mean Corpuscular Hgb Conc 35.1 g/dL (32.0-36.0); Mean Corpuscular Volume 86.2 fL (80.0-100.0); Mean Platelet Volume 10.8 fL (9.4-12.4); Monocytes # (auto) 0.88 K/uL (0.11-0.59); Monocytes % (auto) 7.2 %; Neutrophils # (auto) 5.38 K/uL (1.40-6.50); Platelet Count 276 K/uL (130-400); RDW Coefficient of Variation 14.2 % (11.5-14.5); RDW Standard Deviation 44.6 fL (36.4-46.3); Red Blood Count 4.13 M/uL (4.20-5.40); White Blood Count 12.23 K/ul (4.8-10.8)
[2023-09-18 08:52] LABS: BUN Creatinine Ratio 2.9 (10-20); Calcium 8.1 mg/dl (8.6-10.3); Creatinine Clr Calc Pharmacy 103.7 ml/min; Est GFR (African American) 128.3 ml/min; Est GFR (Non-African American) 110.7 ml/min; Magnesium 1.7 mg/dl (1.7-2.4); Potassium 3.9 mmol/L (3.5-5.1)
--- NOTE | 2023-09-18 08:53 | Gastrointestinal Consultation ---
Date of Consultation September 18, 2023 Assessment & Plan (1) Diarrhea: 38 year old female with acute diarrheal illness, family with same symptoms which resolved, stool testing negative. Recommend starting the following regimen: Questran 4 g BID, Imodium 2 mg BID Trial of Bentyl 10 mg TID If diarrhea continues, OP Colonoscopy can be arranged Recall GI as needed. Thank you for allowing us to participate in the care of this patient. Please call with any acute changes, questions or concerns. Please see addendum below with additional recommendation from my supervising physician. Supervising Physician Co-Signing Physician Notes Agree with pe and plan as documented. Diarrhea, non bloody. Benign abdomen. Agree with medical mgmt. Outpatient colon will be arranged. History of Present Illness Reason for Consultation: diarrhea Requesting Physician: Richard Attending Physician: Ernesto Ramos MD History of Present Illness 38 year old female with history of bronchial asthma, GIL on CPAP, ADD, anxiety/mood disorder admitted with diarrhea. GI was asked to evaluate. Notes her daughter was sick with same symptoms but improved quickly. However, her symptoms have persisted. Notes numerous, watery, nonbloody BMs daily. No black or bloody stools. No fever, chills, CP, SOB. Stool cultures negative EGD: none Colonoscopy: none CTAP 2023: . No bowel wall thickening or obstruction. 2. Prior appendectomy. 3. Fluid-filled nondilated loops of large and small bowel as well as a fluid- filled stomach. Findings suggest a diarrheal illness/gastroenteritis. 4. Multiple prominent mesenteric lymph nodes. These are nonspecific but could be reactive to the suspected gastroenteritis. A mild mesenteric adenitis is also considered in the differential diagnosis. Allergies Allergy/AdvReac Type Severity Reaction Status Date / Time cefadroxil [From Duricef] Allergy Severe THROAT Verified 09/16/23 14:29 CLOSES cefaclor [From [facility]] Allergy Intermediate ITCHY Verified 09/16/23 14:29 HIVES/RASH Cephalosporins Allergy Intermediate Hives, Verified 09/16/23 14:29 Rash-->as a child Penicillins Allergy Intermediate ITCHY Verified 09/16/23 14:29 HIVES/RASH A CHILD Home Medications Medication Instructions Recorded Confirmed Type Control Pill 1 tab PO HS 09/16/23 09/16/23 History bupropion HCl 150 mg 24 hr tablet, 150 mg PO QAM 09/16/23 09/16/23 History extended release (Wellbutrin XL) dextroamphetamine-amphetamine ER 15 mg PO DAILY 09/16/23 09/16/23 History 15 mg 24hr capsule,extend release (Adderall XR) dicyclomine 20 mg tablet 20 mg PO QID PRN abdominal pain 09/16/23 Rx #20 tabs diphenoxylate-atropine 2.5 2 tab PO QID PRN diarrhea #20 tabs 09/16/23 Rx mg-0.025 mg tablet (Lomotil) escitalopram oxalate 10 mg tablet 15 mg PO HS 09/16/23 09/16/23 History (Lexapro) promethazine 25 mg tablet 25 mg PO Q6H PRN nausea and 09/16/23 Rx vomiting #20 tabs semaglutide 1 mg/dose (4 mg/3 mL) 10 mg subcut WK 09/16/23 09/16/23 History subcutaneous pen injector (Ozempic) Patient History Medical History (Updated 09/18/23 @ 08:49 by JORDYN Son) Obesity ADHD Anxiety and depression Surgical History (Updated 09/16/23 @ 14:10 by Mouna Morrissey) H/O section History of appendectomy Social History Smoking Status: Never smoker Hx Alcohol Use: Yes Alcohol type: beer, wine and hard liquor Hx Substance Use: No Preferred Language: Bengali Communication Ability: Effective Product Marketer Required: No Beliefs That Will Affect Care: None Current Living Situation: Spouse Other Information That Helps Us Care for You: No Feels Safe at Home: Yes Safety Concerns: Feels Safe At This Time Assistive Devices: None Review of Systems Review of Systems: All systems reviewed & are unremarkable except as noted in HPI & below Physical Exam Constitutional: WD/WN, vitals as above Respiratory: normal respiratory effort, lungs clear to auscultation Cardiovascular: Rate/Rhythm: regular rate and regular rhythm Gastrointestinal (Abdomen): Percussion/Palpation: + abdomen tender and abdomen soft; no guarding and abdomen not rigid Skin: no rashes, warm and dry Results & Data Vital Signs (Past 12 Hours) Vital Signs Temp Pulse Pulse Resp BP BP Pulse Ox 09/18/23 07:20 36.7 C 82 18 98/68 L 99 09/18/23 07:09 79 09/18/23 02:48 36.8 C 73 16 97/65 L 98 09/17/23 23:16 36.8 C 84 16 109/75 97 09/17/23 22:27 85 O2 Del Method 09/18/23 07:20 Room Air 09/18/23 07:09 09/18/23 02:48 Room Air 09/17/23 23:16 Room Air 09/17/23 22:27 Laboratory Results 09/18/23 Range/Units 07:55 WBC 12.23 H (4.8-10.8) K/ul RBC 4.13 L (4.20-5.40) M/uL Hgb 12.5 (12.0-16.0) g/dl Hct 35.6 L (37.0-47.0) % MCV 86.2 (80.0-100.0) fL MCH 30.3 (25.0-34.0) pg MCHC 35.1 (32.0-36.0) g/dL RDW Std Deviation 44.6 (36.4-46.3) fL RDW Coeff of Mariely 14.2 (11.5-14.5) % Plt Count 276 (130-400) K/uL MPV 10.8 (9.4-12.4) fL Immature Gran % (Auto) 2.0 % Neut % (Auto) 44.0 % Lymph % (Auto) 24.6 % [place] % (Auto) 7.2 % Eos % (Auto) 22.0 % Baso % (Auto) 0.2 % Neut # (Auto) 5.38 (1.40-6.50) K/uL Lymph # (Auto) 3.01 (1.20-3.40) K/uL [place] # (Auto) 0.88 H (0.11-0.59) K/uL Eos # (Auto) 2.69 H (0.00-0.50) K/uL Baso # (Auto) 0.03 (0.00-0.20) K/uL Immature Gran # (Auto) 0.24 H (0.01-0.20) K/uL Sodium Pending Potassium Pending Chloride Pending Carbon Dioxide Pending Anion Gap Pending BUN Pending Creatinine Pending Est Cr Clr Drug Dosing Pending Est GFR ( Amer) Pending Est GFR (Non-Af Amer) Pending BUN/Creatinine Ratio Pending Glucose Pending Calcium Pending Magnesium Pending
[2023-09-18] MEDS: LOPERAMIDE HCL 2 MG CAP PO SCH (11:32)
--- NOTE | 2023-09-18 13:12 | Hospitalist Progress Note ---
Date of Service September 18, 2023 Assessment & Plan (1) Hypokalemia due to excessive gastrointestinal loss of potassium: (2) Nausea, vomiting, and diarrhea: Plan: Patient presented for evaluation of nausea, vomiting and diarrhea. Reports symptoms for more than a week History of similar symptoms with her school-aged daughter; her symptoms have improved Serum potassium of 2.[address] abdomen/pelvis on admissionno bowel obstruction, fluid-filled nondilated loops of large and small bowel; findings suggestive of diarrheal illness/gastroenteritis. Multiple prominent mesenteric lymph node. Nonspecific; could be reactive to suspected gastroenteritis GI PCR panel and C. difficile negative Continue IV fluids Replete potassium Recommended diary to note number of bowel movements GI evaluated the patient; recommend cholestyramine twice a day as well as loperamide. Encouraged oral hydration Full code Lovenox Please note the above document was generated using voice recognition software. It may contain grammatical, syntax or spelling errors. Any formal questions or concerns about the content, text or information contained within the body of this dictation should be directly addressed to the provider for clarification Admission and Anticipated Discharge Date Admission Date: September 16, 2023 Subjective Patient had multiple episode of bowel movement since yesterday morning. Notes about 20 bowel movements. No significant events otherwise Review of Systems Review of Systems: All systems reviewed & are unremarkable except as noted in Subjective Physical Exam Physical Exam: Constitutional: WD/WN, vitals as above, NAD, sitting up in bed, pleasant, conversing easily Respiratory: normal respiratory effort, lungs clear to auscultation, no wheeze, rales, rhonchi. Normal insp/exp effort, no accessory muscle use Cardiovascular: RRR, no murmur, no edema Vessels: no JVD or carotid bruit Chest: normal inspection of chest Abdomen: Soft, nontender Musculoskeletal: no cyanosis or clubbing, extremities motor strength 5/5 Skin: no rashes, warm and dry normal turgor Neurologic: PERRL, EOMI, accommodation nl, no face palsy, no dysarthria CN's II- XI intact bilaterally and moves all extremities Psychiatric: A+Ox3, euthymic affect Results & Data Results & Data Vital Signs (Past 12 Hours) Vital Signs Temp Pulse Pulse Resp BP BP Pulse Ox 09/18/23 11:16 36.8 C 65 18 95/66 L 99 09/18/23 07:20 36.7 C 82 18 98/68 L 99 09/18/23 07:09 79 09/18/23 02:48 36.8 C 73 16 97/65 L 98 O2 Del Method 09/18/23 11:16 Room Air 09/18/23 07:20 Room Air 09/18/23 07:09 09/18/23 02:48 Room Air
[2023-09-18] MEDS: CHOLESTYRAMINE LIGHT 4 GM PKT PO SCH (14:01)
[2023-09-18] MEDS: KETOROLAC TROMETHAMINE 15 MG/ML VIAL IV PRN (20:32)
[2023-09-18] MEDS: LORazepam 0.5 MG TAB PO PRN (20:34)
[2023-09-18] MEDS: KETOROLAC TROMETHAMINE 15 MG/ML VIAL IV ONE (20:36)
[2023-09-18] MEDS: SODIUM CHLORIDE 0.9% 1,000 ML IV SCH (20:39)
[2023-09-18] MEDS: MAGNESIUM SULFATE / D5W 1 GM/100 ML BAG IV ONE (20:43)
[2023-09-18] MEDS: ACETAMINOPHEN 325 MG TAB PO PRN (21:48)
[2023-09-19 07:20] LABS: Basophils # (auto) 0.05 K/uL (0.00-0.20); Basophils % (auto) 0.4 %; Eosinophils # (auto) 3.16 K/uL (0.00-0.50); Eosinophils % (auto) 22.7 %; Hematocrit (blood only) 36.7 % (37.0-47.0); Hemoglobin 12.9 g/dl (12.0-16.0); Immature Granulocytes # (auto) 0.21 K/uL (0.01-0.20); Immature Granulocytes % (auto) 1.5 %; Lymphocytes # (auto) 3.02 K/uL (1.20-3.40); Lymphocytes % (auto) 21.7 %; Mean Corpuscular Hemoglobin 30.2 pg (25.0-34.0); Mean Corpuscular Hgb Conc 35.1 g/dL (32.0-36.0); Mean Corpuscular Volume 85.9 fL (80.0-100.0); Mean Platelet Volume 10.4 fL (9.4-12.4); Monocytes # (auto) 0.85 K/uL (0.11-0.59); Monocytes % (auto) 6.1 %; Neutrophils # (auto) 6.62 K/uL (1.40-6.50); Neutrophils % (auto) 47.6 %; Platelet Count 285 K/uL (130-400); RDW Coefficient of Variation 14.1 % (11.5-14.5); RDW Standard Deviation 43.8 fL (36.4-46.3); Red Blood Count 4.27 M/uL (4.20-5.40); White Blood Count 13.91 K/ul (4.8-10.8)
--- NOTE | 2023-09-19 07:26 | Communication Note ---
Date of Service: September 19, 2023 Patient complained of seeing various bright colors of different geometric shapes on the lateral aspect of right visual field and its happening even when both eyes were closed. Initially no headache or dizziness. No loss of vision. Could count fingers in all quadrants bilaterally.Sitting comfortably and vitals table. Power 5/5 in all extremities, co ordination of movements normal. Speech clear,No Facial droop, Ambulating fine.It started around 7: 30pm last night. About 30- 40minutes later bright colors changed to some blurred vision on same side and no loss of vision and developed 4/10 frontal headache. Discussed with Kimberlee Stroke Neurology BAsed on description [facility] thought mostly Migraine and as symptoms improving recommended one litre fluid bolus and maintenance 100ml/hr, iv Toradol and iv magnesium and to call back if symptoms worsens or anything changes. With above regimen patient symptoms resolved.
[2023-09-19 08:01] LABS: Calcium 8.2 mg/dl (8.6-10.3); Creatinine Clr Calc Pharmacy 108.5 ml/min; Est GFR (African American) 130.1 ml/min; Est GFR (Non-African American) 112.3 ml/min; Magnesium 1.9 mg/dl (1.7-2.4); Potassium 4.4 mmol/L (3.5-5.1)
--- NOTE | 2023-09-19 08:59 | Gastroenterology Progress Note ---
Date of Service September 19, 2023 Assessment & Plan (1) Diarrhea: Plan: 38 year old female with acute diarrheal illness, family with same symptoms which resolved, stool testing negative. Feeling better with Questran. She is requesting to go home. No GI contraindic ation to discharge. I asked her to continue the Questran and Imodium but to decrease these medications once her bowels start to become more formed and les frequent. She verbalized understanding. She should follow up with GI if her symptoms do not improve. Recall GI as needed. Thank you for allowing us to participate in the care of this patient. Please call with any acute changes, questions or concerns. Please see addendum below with additional recommendation from my supervising physician. Admission and Anticipated Discharge Date Admission Date: September 18, 2023 Supervising Physician Co-Signing Physician Notes Agree with pe and plan as documented. Feeling much better this morning. Planning for discharge today. Subjective Feeling improved Wants to go home Notes about 10 less BM than day prior No nausea/vomiting Review of Systems Review of Systems: All systems reviewed & are unremarkable except as noted in HPI & below Physical Exam Constitutional: WD/WN, vitals as above Respiratory: normal respiratory effort, lungs clear to auscultation Cardiovascular: Rate/Rhythm: regular rate and regular rhythm Gastrointestinal (Abdomen): normal bowel sounds, soft, nontender, no hepatosplenomegaly Skin: no rashes, warm and dry Results & Data Vital Signs (Past 12 Hours) Vital Signs Temp Pulse Pulse Resp BP Pulse Ox O2 Del Method 09/19/23 08:02 36.6 C 91 H 18 111/79 99 Room Air 09/19/23 08:00 77 09/19/23 03:00 36.4 C L 74 16 96/66 L 99 Room Air 09/18/23 23:21 36.7 C 77 18 95/66 L 98 Room Air 09/18/23 21:58 86 Laboratory Results 09/19/23 09/18/23 Range/Units 06:49 19:45 WBC 13.91 H (4.8-10.8) K/ul RBC 4.27 (4.20-5.40) M/uL Hgb 12.9 (12.0-16.0) g/dl Hct 36.7 L (37.0-47.0) % MCV 85.9 (80.0-100.0) fL MCH 30.2 (25.0-34.0) pg MCHC 35.1 (32.0-36.0) g/dL RDW Std Deviation 43.8 (36.4-46.3) fL RDW Coeff of Mariely 14.1 (11.5-14.5) % Plt Count 285 (130-400) K/uL MPV 10.4 (9.4-12.4) fL Immature Gran % (Auto) 1.5 % Neut % (Auto) 47.6 % Lymph % (Auto) 21.7 % Payette % (Auto) 6.1 % Eos % (Auto) 22.7 % Baso % (Auto) 0.4 % Neut # (Auto) 6.62 H (1.40-6.50) K/uL Lymph # (Auto) 3.02 (1.20-3.40) K/uL Payette # (Auto) 0.85 H (0.11-0.59) K/uL Eos # (Auto) 3.16 H (0.00-0.50) K/uL Baso # (Auto) 0.05 (0.00-0.20) K/uL Immature Gran # (Auto) 0.21 H (0.01-0.20) K/uL Sodium 138 (136-145) mmol/L Potassium 4.4 (3.5-5.1) mmol/L Chloride 110 H (98-107) mmol/L Carbon Dioxide 25 (21-32) mmol/L Anion Gap 3 (3-11) BUN 4 L (6-23) mg/dl Creatinine 0.67 (0.6-1.2) mg/dl Est Cr Clr Drug Dosing 108.5 ml/min Est GFR ( Amer) 130.1 ml/min Est GFR (Non-Af Amer) 112.3 ml/min BUN/Creatinine Ratio 6.0 L (10-20) Glucose 96 (70-99(Fasting)) mg/dl POC Glucose 95 (70-99) mg/dl Calcium 8.2 L (8.6-10.3) mg/dl Magnesium 1.9 (1.7-2.4) mg/dl
--- NOTE | 2023-09-19 14:16 | Discharge Summary ---
Date of Service September 19, 2023 Admission HPI Per Admitting Provider History obtained from patient, family, and records. Medical history significant for bronchial asthma, GIL on CPAP, ADD, anxiety/mood disorder Patient relocated to town 6 months ago to live with partner. 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 1 week history of achy abdominal pain associated with nausea, vomiting, watery diarrhea symptoms. Sick contacts at home and at work. No recent antibiotic Rx intake or out-of-town travel. Some chills. No chest pain, no SOB, no headache symptoms. Transient uncomfortable arm and leg tingling after IV potassium administered at the ER. Patient currently comfortable. Medical History as above Surgical History : section, dental surgery, appendectomy Family History : Stroke Personal/Social history : non-smoker, occasional EtOH intake, schoolteacher Admission Exam Per Admitting Provider GENERAL: Comfortable, pleasant, obese, no respiratory distress SKIN: Normal color, warm HEENT: [place] palpebral conjunctivae, no ptosis, dry buccal mucosa NECK : Supple, short neck, no tenderness CHEST : CTA, no tenderness HEART : RRR, no obvious murmurs ABDOMEN: Some distention, central abdominal tenderness EXTREMITIES : Minimal LE swelling, no LE tenderness, no other conspicuous deformities noted NEUROLOGIC : Coherent, no facial asymmetry, no other gross focality Principal Diagnosis Diarrhea Hypokalemia Discharge Exam Constitutional: WD/WN, vitals as above, NAD, sitting up in bed, pleasant, conversing easily Respiratory: normal respiratory effort, lungs clear to auscultation, no wheeze, rales, rhonchi. Normal insp/exp effort, no accessory muscle use Cardiovascular: RRR, no murmur, no edema Vessels: no JVD or carotid bruit Chest: normal inspection of chest Abdomen: normal bowel sounds, soft, nontender, no hepatosplenomegaly Musculoskeletal: no cyanosis or clubbing, extremities motor strength 5/5 Skin: no rashes, warm and dry normal turgor Neurologic: PERRL, EOMI, accommodation nl, no face palsy, no dysarthria CN's II- XI intact bilaterally and moves all extremities Psychiatric: A+Ox3, euthymic affect Discharge Data Allergies Allergy/AdvReac Type Severity Reaction Status Date / Time cefadroxil [From [facility] [place]] Allergy Severe THROAT Verified 09/16/23 14:29 CLOSES cefaclor [From Ceclor] Allergy Intermediate ITCHY Verified 09/16/23 14:29 HIVES/RASH Cephalosporins Allergy Intermediate Hives, Verified 09/16/23 14:29 Rash-->as a child Penicillins Allergy Intermediate ITCHY Verified 09/16/23 14:29 HIVES/RASH A CHILD Consultations 09/16/23 19:43 ED Decision to Admit Stat 09/18/23 07:47 Consult Gastroenterology Routine Ordered Studies 09/16/23 16:18 CT Abd and Pelvis [CT abd pelvis IV con only] Stat Hospital Course (1) Hypokalemia due to excessive gastrointestinal loss of potassium: (2) Nausea, vomiting, and diarrhea: Patient presented for evaluation of nausea, vomiting and diarrhea. Reports symptoms for more than a week History of similar symptoms with her school-aged daughter; her symptoms have improved Serum potassium of 2.[address] abdomen/pelvis on admissionno bowel obstruction, fluid-filled nondilated loops of large and small bowel; findings suggestive of diarrheal illness/gastroenteritis. Multiple prominent mesenteric lymph node. Nonspecific; could be reactive to suspected gastroenteritis GI PCR panel and C. difficile negative During the hospitalization, patient was treated with supportive care with IV fluids, repletion of electrolytes. Patient had persistent diarrhea up to 20 times per day for which GI was consulted. GI evaluated the patient; they recommended cholestyramine and loperamide. Patient reported improvement in symptoms on cholestyramine and loperamide. GI cleared for discharge. They will follow-up with her as outpatient for colonoscopy. On patient's lab work during the hospitalization; her WBC count was slightly elevated to 13-14,000 with 2-3000 a few significance. I discussed with patient regarding the findings. Patient to follow-up with her primary care doctor and obtain CBC with differential as outpatient. She might need a referral to hematology or allergy/immunology as outpatient if she has persistent eosinophilia Please note the above document was generated using voice recognition software. It may contain grammatical, syntax or spelling errors. Any formal questions or concerns about the content, text or information contained within the body of this dictation should be directly addressed to the provider for clarification Total Time Total Time Spent Total Time Spent (In Minutes): 35 Total Time Includes: Examination of the Patient, Discharge Planning, Medication Reconciliation, Communication With Other Providers and Other Discharge Plan Discharge Items Patient Disposition: Home - Self-Care Reason For Visit: HYPOKALEMIA Discharge Diagnosis: Hypokalemia Diarrhea Activity: Resume your previous activity Non-emergency contact: Primary Care Provider Call non-emergency contact if: you have any medication questions and your symptoms worsen Follow-up/Referrals: Chayo Quan MD [Outside Practitioners] - (Date & Time 09/26/2023 9:00 AM Provider Chayo Quan MD Department [facility] ) Diet: Regular Addtl Attending Provider Instructions: You were admitted to the hospital due to diarrhea and low potassium level. You were treated with IV hydration and potassium supplement during the hospitalization. You were seen by GI during the hospitalization for the diarrhea. They recommend that you are started on cholestyramine 4 g twice a day and loperamide 2 mg twice a day for the diarrhea. Once your stool starts to become formed, you can stop taking these medications earlier. They recommend outpatient colonoscopy. You were also prescribed potassium tablets to be taken twice daily. Please drink 200 cc of Pedialyte each time you have diarrhea. Your blood work during the hospitalization showed elevated WBC count with elevated eosinophils. You will have an appointment set up with a primary care doctor. During the follow-up, please obtain CBC with differential to follow-up on the eosinophil counts. You might need referral to hematology depending on the results. Pending Studies at Discharge: No Stand-Alone Forms: [facility], Work/School Release, Smoking Cessation Medications and DC Order Prescriptions: New cholestyramine-aspartame [Prevalite] 4 gram Powder In Packet 1 ea PO BID@1000,2200 7 Days Qty: 60 0RF loperamide 2 mg Capsule 2 mg PO BID 7 Days Qty: 14 0RF potassium chloride 20 mEq tablet extended release 20 meq PO BID 7 Days Qty: 14 0RF Continued dextroamphetamine-amphetamine [Adderall XR] 15 mg Capsule,Extended Release 24hr 15 mg PO DAILY escitalopram oxalate [Lexapro] 10 mg Tablet 15 mg PO HS bupropion HCl [Wellbutrin XL] 150 mg Tablet Extended Release 24 Hr 150 mg PO QAM Ozempic 1 mg/dose (4 mg/3 mL) Pen Injector 10 mg SUBCUT WK Rx Instructions: SUNDAYS Control Pill 1 tab PO HS Discharge Orders: Discharge Order (Routine); Ordered 09/19/23 Ordered By: Ernesto Ramos Admission Data Admit Date/Time: 09/18/23 13:09 Attending Provider: Ernesto Ramos Admit Provider: Reese Lopez Primary Care Provider: PCP,NO Other Providers: Reese Lopez; Rosette Tang; Igor Alvarez; Em Garrett; Linnette Yo; Sallie Gordon; Nancy Ward; Trey Parson; Rashid Lin; Radha Echavarria; Addison Jeffers; Ama Reese S; Angela Aceves; Beulah Sena; Iza Erickson; Sybil Abdalla; Star Do; Shun Rothman; Nicolas Recinos; Marian Alan; Gaetano Roberson Jr
== END 2023-09-19 14:19 | disposition home or self-care (01) | DRG 392 ==
LOC: 2N 12:54 → ED 12:54 → 2N 09-17 00:23